=== PATIENT | female | born 1975 | race Two or more races ===

== ENCOUNTER 2016-11-02 05:55 | Emergency (ER) | payer MEDICAID ==
[~2016-11-02] VITALS: Ht 154.9 cm; Wt 65.8 kg
[2016-11-02 06:19] VITALS: BP 127/80
[2016-11-02] MEDS ORDERED: KETOROLAC TROMETH 60MG/2ML VIAL IM ONE (08:15)
[2016-11-02] MEDS ORDERED: methylPREDNISolone SOD SUCC 125 MG/2 ML VL IM ONE (08:15)
== END 2016-11-02 09:00 | disposition home or self-care (01) ==
LOC: ER 05:57
DX: G89.29 Other chronic pain (principal); M54.2 Cervicalgia; M54.5 Low back pain; J06.9 Acute upper respiratory infection, unspecified; Z76.0 Encounter for issue of repeat prescription
CPT/HCPCS: 96372; 99284; J1885; J2930

== ENCOUNTER 2017-09-16 13:34 | Emergency (ER) | payer MEDICAID ==
[~2017-09-16] VITALS: Ht 154.9 cm; Wt 65.8 kg
[2017-09-16 13:42] VITALS: BP 149/96
[2017-09-16] MEDS ORDERED: ACETAMINOPHEN 500 MG TAB PO ONE (14:00)
[2017-09-16 14:25] LABS: Basophils # (auto) 0.1 uL; Basophils % (auto) 1.2 % (0.0-2.0); Eosinophils # (auto) 0.3 uL; Eosinophils % (auto) 2.8 % (0.0-7.0); Hemoglobin 12.8 g/dL (12.2-16.2); Lymphocytes # (auto) 4.3 uL; Lymphocytes % (auto) 40.7 % (10.0-50.0); Mean Corpuscular Hemoglobin 26.3 pg (28.0-32.0); Mean Corpuscular Hgb Conc. 32.1 g/dL (32.0-36.0); Mean Corpuscular Volume 81.8 fL (80.0-100.0); Monocytes # (auto) 0.8 uL; Monocytes % (auto) 7.7 % (0.0-12.0); Neutrophils # (auto) 5.1 uL; Neutrophils % (auto) 47.6 % (37.0-80.0); Nucleated Red Blood Cells % 0.1 %; Platelet Count (auto) 307 10^3/uL (140-450); Red Blood Cells 4.89 10^6/uL (4.0-5.20); Red Cell Distribution Width 15.6 % (11.8-14.3); White Blood Cell 10.6 10^3/uL (4.4-10.8)
[2017-09-16 14:44] LABS: Albumin 3.8 g/dL (3.4-5.0); BUN/Creatinine Ratio 10.8; Bilirubin, Total 0.2 mg/dL (0.2-1.0); Calcium 8.7 mg/dL (8.5-10.1); Magnesium 2.4 mg/dL (1.6-2.6); Potassium 3.8 mmol/L (3.5-5.1); Total Protein 7.1 g/dL (6.4-8.2)
== END 2017-09-16 17:22 | disposition left against medical advice (07) ==
LOC: ER 13:37
DX: R07.89 Other chest pain (principal); F17.210 Nicotine dependence, cigarettes, uncomplicated; Z90.49 Acquired absence of other specified parts of digestive tract
CPT/HCPCS: 36415; 80053; 83735; 84484; 85025; 93005